=== PATIENT | male | born 1975 | race Caucasian/White ===

== ENCOUNTER 2020-10-25 21:00 | Emergency (ER) | payer OTHER ==
[~2020-10-25] VITALS: Ht 193 cm; Wt 131.5 kg
[2020-10-25] MEDS ORDERED: ONDANSETRON HCL 4 MG ORAL DISINTEGRATING TAB PO ONE (21:30)
[2020-10-25] MEDS ORDERED: IBUPROFEN 200 MG TAB PO ONE (21:30)
[2020-10-25] MEDS ORDERED: HYDROCODONE/APAP 5MG-325MG TAB PO ONE (21:30)
[2020-10-25] MEDS ORDERED: ONDANSETRON HCL 4 MG ORAL DISINTEGRATING TAB ONE (21:39)
[2020-10-25] MEDS ORDERED: IBUPROFEN 600 MG TAB ONE (21:39)
[2020-10-25] MEDS ORDERED: HYDROCODONE/APAP 5MG-325MG TAB ONE (21:40)
[2020-10-25] MEDS ORDERED: IBUPROFEN IB200 MG PO (21:43)
[2020-10-25] MEDS ORDERED: ONDANSETRON ODT4 MG PO (21:43)
[2020-10-25] MEDS ORDERED: ACETAMINOPHEN-1 EAC4 PO (21:43)
== END 2020-10-25 22:45 | disposition home or self-care (01) ==
LOC: FSED 21:25
DX: S52.501A Unspecified fracture of the lower end of right radius, initial encounter for closed fracture (principal); V83.4XXA Person injured while boarding or alighting from special industrial vehicle, initial encounter; Y99.0 Civilian activity done for income or pay; E11.9 Type 2 diabetes mellitus without complications
CPT/HCPCS: 29125; 73110; 99284; Q0162